=== PATIENT | female | born 1975 | race Caucasian/White ===

== ENCOUNTER 2021-12-24 07:08 | Outpatient (CLI) | payer MEDICAID ==
[~2021-12-24 07:08] MED LIST: CODE120S3 PO
[2021-12-24 07:31] LABS: ABG BASE EXCESS 0.2 mmol/L (-2.0-2.0); ABG HCO3 22.6 mmol/L (22.0-26.0); ABG PCO2 (T) 30.5 mmHg (32.0-45.0); ABG PO2 (T) 104.6 mmHg (75.0-100.0); ALLEN'S TEST POSITIVE; FCOHb 0.3 % (0.0-3.9); FMetHb 0.1 % (0.0-1.5); FO2Hb 97.6 % (94-97); TOTAL HEMOGLOBIN 14.7 G/dl (12.0-16.0)
== END 2021-12-24 23:59 | disposition home or self-care (01) ==
LOC: RT 07:08
PROVIDERS: ATTEND Student in an Organized Health Care Education/Training Program
DX: R06.02 Shortness of breath (principal); Z87.891 Personal history of nicotine dependence
CPT/HCPCS: 36600; 82803; 85018; 94010; 94727; 94729

== ENCOUNTER 2023-10-05 10:23 | Outpatient (CLI) | payer MEDICAID ==
[~2023-10-05] VITALS: Ht 167.6 cm; Wt 72.6 kg
[2023-10-05 10:52] VITALS: PULSE 83; RESP 16; O2SAT 99
[2023-10-05] MEDS: albuterol 2.5 MG/3 ML nebule NEB ONE (11:09)
== END 2023-10-05 23:59 | disposition home or self-care (01) ==
LOC: RT 10:23
PROVIDERS: ATTEND Student in an Organized Health Care Education/Training Program
DX: R06.02 Shortness of breath (principal)
CPT/HCPCS: 94060; 94760

== ENCOUNTER 2023-12-15 08:51 | Outpatient (CLI) | payer MEDICAID | END 2023-12-15 23:59 | disposition home or self-care (01) | LOC: CARD DIAG 08:51 | PROVIDERS: ATTEND Family Medicine | DX: I08.8 Other rheumatic multiple valve diseases (principal); R06.02 Shortness of breath | CPT/HCPCS: 93306 ==